=== PATIENT | male | born 1965 | race Caucasian/White ===

== ENCOUNTER 2018-03-03 19:45 | Emergency (ER) | payer OTHER ==
[~2018-03-03] VITALS: Ht 180.3 cm; Wt 83.5 kg
== END 2018-03-03 23:50 | disposition home or self-care (01) ==
LOC: ER 19:45
DX: M62.830 Muscle spasm of back (principal)

== ENCOUNTER 2018-10-15 17:11 | Emergency (ER) | payer OTHER ==
[~2018-10-15] VITALS: Ht 180.3 cm; Wt 82.6 kg
== END 2018-10-15 21:37 | disposition home or self-care (01) ==
LOC: ER 17:11
DX: R06.02 Shortness of breath (principal); J32.8 Other chronic sinusitis

== ENCOUNTER 2020-12-04 11:54 | Emergency (ER) | payer OTHER ==
[~2020-12-04] VITALS: Ht 180.3 cm; Wt 98.4 kg
[2020-12-04] MEDS ORDERED: COZAAR50 MG PO (12:40)
== END 2020-12-04 19:41 | disposition home or self-care (01) ==
LOC: ER 11:54
DX: M62.838 Other muscle spasm (principal); M54.89 Other dorsalgia

== ENCOUNTER 2022-04-24 09:58 | Emergency (ER) | payer OTHER ==
[~2022-04-24] VITALS: Ht 180.3 cm; Wt 52.2 kg
[~2022-04-24 09:58] MED LIST: COZAAR50 MG PO
[2022-04-24] MEDS ORDERED: CELEBREX100 MG PO (14:16)
[2022-04-24] MEDS ORDERED: ORPHENADRINE C100 MG PO (14:16)
== END 2022-04-24 14:23 ==
LOC: ER 09:58
DX: S09.8XXA Other specified injuries of head, initial encounter (principal); S80.02XA Contusion of left knee, initial encounter; W19.XXXA Unspecified fall, initial encounter; Y93.89 Activity, other specified; Y92.89 Other specified places as the place of occurrence of the external cause; R11.0 Nausea; I10 Essential (primary) hypertension

== ENCOUNTER → 2022-07-11 | Emergency (ER) | payer OTHER ==
[~2022-07-11] VITALS: Ht 180.3 cm; Wt 98.4 kg
[~2022-07-11] MED LIST changes: +CELEBREX100 MG PO; +ORPHENADRINE C100 MG PO
== END | disposition home or self-care (01) ==
LOC: ER 21:55
DX: S09.90XA Unspecified injury of head, initial encounter (principal); W19.XXXA Unspecified fall, initial encounter; Y93.9 Activity, unspecified; Y92.9 Unspecified place or not applicable; S80.02XA Contusion of left knee, initial encounter; I10 Essential (primary) hypertension